=== PATIENT | male | born 1950 | race Caucasian/White ===

== ENCOUNTER → 2018-11-18 11:48 | Outpatient (CLI) | payer OTHER, SELFPAY ==
[2018-11-18 12:30] LABS: Absolute Lymphocyte Count 1.83 X10^3/uL (0.83-4.51); Absolute Neutrophil Count 6.1 X10^3/uL (2.0-7.7); Basophil# 0.04 X10^3/uL; Basophil% 0.5 % (0-1); Eosinophil# 0.17 X10^3/uL; Eosinophils% 1.9 % (0-5); Hematocrit 43.7 % (40-54); Hemoglobin 13.6 g/dL (13.0-16.5); Lymphocyte # 1.83 X10^3/ul (4.0); Lymphocyte % 20.8 % (19-41); Mean Corp Hgb Conc 31.1 g/dL (32-36); Mean Corpuscular Hgb 29.8 pg (27.0-32.0); Mean Corpuscular Volume 95.8 fL (80-94); Mean Platelet Vol. 10.2 fl (6.2-12.0); Monocyte# 0.69 X10^3/uL; Monocyte% 7.8 % (0-10); NRBC Flagged by Analyzer 0 % (0-5); Neutrophil # 6.05 X10^3/uL (2.7-7.7); Neutrophil % 68.7 % (47-70); Platelet Count 251 K/mm3 (150-450); RBC Distribution Width CV 12.4 % (11.6-14.6); RBC Distribution Width SD 43.8 fl (35.1-43.9); Red Blood Count 4.56 M/mm3 (4.6-6.2); White Blood Count 8.8 K/mm3 (4.4-11.0)
== END ==
PROVIDERS: Referring Provider Specialist; Visit Provider Specialist
DX: M19.211 Secondary osteoarthritis, right shoulder (principal)
CPT/HCPCS: 36415; 85025

== ENCOUNTER 2018-12-11 07:05 | Inpatient (IN) | payer MEDICARE, SELFPAY ==
[2018-11-27 15:13] VITALS: BP 134/77; PULSE 79; RESP 16; TEMP 37.4; O2SAT 93; BMI 36.0
--- NOTE | 2018-11-27 15:46 | SDCEKG_ITS ---
Test Reason : Blood Pressure : / mmHG Vent. Rate : 076 BPM Atrial Rate : 076 BPM P-R Int : 154 ms QRS Dur : 100 ms QT Int : 396 ms P-R-T Axes : 062 072 080 degrees QTc Int : 445 ms Normal sinus rhythm Normal ECG Confirmed by ROEL BELL ([id number]), editor index KIMBERLEY CORONADO ([id number]) on 12/03/2018 1:03:09 PM Referred By: Yovani Alberts Confirmed By:ROEL BELL
--- NOTE | 2018-11-27 16:15 | RAD_ITS ---
STUDY: X-RAY CHEST REASON FOR EXAM: Male, 68 years old. Preop shoulder surgery TECHNIQUE: Frontal and lateral views of the chest. COMPARISON: None. FINDINGS: The lungs are hyperexpanded. There are coarsened interstitial markings suggestive of mild chronic fibrosis. There is scarring in the lung bases. No gross focal infiltrates. No gross effusions. Normal size heart. Normal mediastinum and laurence. Normal visualized pulmonary arteries. Normal visualized aortic arch and descending thoracic aorta. There are diffuse degenerative changes of the visualized thoracic spine. Normal visualized ribs, clavicles, and shoulders. There is no demonstrated abnormality of the visualized soft tissue structures of the upper abdomen. RAD/Chest PA and Lateral IMPRESSION: There are findings consistent with COPD. There is no evidence of acute chest disease. Electronically Signed: Jose J Kraft MD at 16:37 EDT , Service support ,
[2018-11-27 18:03] LABS: Anion Gap 8 (5-15); BUN 17 mg/dL (7-18); BUN/Creat Ratio 25.1 RATIO (10-20); Calcium,Total 9.1 mg/dL (8.5-10.1); Chloride 96 mmol/L (98-107); Creatinine, Serum 0.68 mg/dL (0.70-1.30); EST Glomerular Filtration Rate 124 mL/min (>60); Est Glom Filt Rate - Afr Amer 150 mL/min (>60); Glucose 92 mg/dL (74-106); Potassium 4.1 mmol/L (3.5-5.1); Sodium Level 138 mmol/L (136-145)
[2018-12-11] VITALS (14 sets, daily range): BP systolic 114–134; BP diastolic 60–76; PULSE 60–87; RESP 17–19; TEMP 36.3–37; O2SAT 88–98; BMI 36.0
--- NOTE | 2018-12-11 07:19 | RAD_ITS ---
STUDY: X-RAY - RIGHT SHOULDER REASON FOR EXAM: Male, 68 years old. Total right shoulder replacement. TECHNIQUE: 2 view(s) of the shoulder. COMPARISON: None. FINDINGS: The patient is status post right reverse shoulder replacement. There is good alignment. Postoperative soft tissue changes. RAD/Shoulder min 2 Views IMPRESSION: Status post right reverse shoulder replacement. There is good alignment. Electronically Signed: Alexandr Deluna, at 14:00 EDT , Service support ,
[2018-12-11 07:36] LABS: Bedside Glucose 158 mg/dL (70-110)
[2018-12-11] MEDS: Acetaminophen 500 MG Tablet 1000 MG PO ×3 (07:58→22:33)
[2018-12-11] MEDS: Scopolamine 1mg/72hr Patch 1 PATCH TRANSDERM. (07:59)
[2018-12-11] MEDS: Gabapentin 600 MG Tablet PO (08:00)
[2018-12-11] MEDS: Celecoxib 200 MG Capsule 400 MG PO (08:00)
[2018-12-11] MEDS: Magnesium Sulfate 4gm/100mL 4 GM/100 ML IV.SOLN. IV (08:04)
[2018-12-11] MEDS: Lactated Ringers 1,000 ML 999 ML IV (08:10)
[2018-12-11] MEDS: Lactated Ringers 1,000 ML 125 ML IV ×3 (10:03→23:41)
[2018-12-11] MEDS: Cefazolin 2 GM in 0.9% Normal Saline 100 ML IV (10:20)
--- NOTE | 2018-12-11 11:51 | PCM.OPRPT ---
Report of Operation Date of Procedure: 12/11/18 Pre-Operative Diagnosis: Right shoulder cuff tear arthropathy Post-Operative Diagnosis: Right shoulder cuff tear arthropathy Surgery/Procedure Performed:: Right reverse total shoulder replacement Description of Surgical Findings:: Stable shoulder. professional engineer: Shahrzad Garcia Type of Anesthesia:: General Anesthesiologist: Robinson Mendez Special Medications: 2 g Ancef, 1 g TXA at incision, 1 g TXA closure, 10 mg Decadron, IV vancomycin Specimen's removed: Bony cuts Estimated Blood Loss (mL): 300 Fluids Replaced: 1300 mL crystalloid Description of Procedure: Components used 1. [place] reunion glenoid baseplate 2. [place] reunion 36 mm, 6 mm lateralized, offset 2 mm Glenosphere 3. [place] 36mm, 4mm humeral liner 4. [place] reverse TSA humeral adapter tray 4mm 5. Jarret humeral stem primary press-fit short 14 mm size Brief history/Operative indications: 68 yo M with history of r shoulder pain and cuff tear arthropathy. Patient failed conservative measures as mentioned in the H&P. After discussion of risk and benefits of reverse total shoulder replacement including but not limited to blood loss, DVTs, PEs, nerve vessel damage, infection, general risk of anesthesia including loss of life, instability and stiffness patient demonstrating understanding wish to proceed was able to sign informed consent. Medical clearance was obtained. Procedure: On the date of the procedure, patient's R upper extremity was marked in the preoperative area. Patient was taken back to the operating room where they were placed on the table in the supine position. Anesthesia assumed control of the C-spine and airway, then administered anesthetic. All bony prominences were identified well-padded, the head was secured and the patient was placed in the beachchair position at about 35? inclination. Anesthesia remained in control of the C-spine airway throughout the remainder of the procedure. Patient was then appropriately fastened to the table and the R upper extremity was prepped in a sterile fashion. The surgeons then scrubbed. Upon reentering the room, the R upper extremity was draped in a sterile fashion and the incision was marked out. Timeout was called, everyone agreed upon the side, the site, the procedure to be performed, patient identity and antibiotics given. Incision was taken down through skin and subcutaneous tissue, fat down to fascia. The stripe of the deltopectoral interval and cephalic vein were identified and blunt dissection was used to retract the deltoid. The cephalic vein was retracted laterally. Clavipectoral fascia was then incised and a cobra retractor was placed in the wound. The proximal one third of the pectoralis major insertion was released. Pectoralis tendon insertion was used to tenodesed the biceps tendon which was identified in the bicipital groove. Tenodesis was done with #1 Vicryl. Proximally we followed the biceps tendon after transecting it into the rotator interval. The rotator interval was split and the arm was externally rotated. The split was 1 cm medial to the bicipital groove. Subscapularis tendon was released. We released down the anterior portion of the humeral head and a beatty elevator was used to release the inferior portion of the humeral head. The arm was externally rotated and the shoulder was dislocated. The humerus was cut in anatomic version. This was done at 20? retroversion. Once his humeral head cut was made humerus was retracted out of the way and the glenoid was exposed. After exposing the glenoid, the labrum and the remaining proximal biceps were debrided. At this time we are able to view the entire outer edge of the glenoid. A central pin was placed we sequentially reamed over this central pin to 36mm. Once this was completed the central pedicle was drilled. The glenoid baseplate was impacted into place. Wound was closely irrigated out with normal saline we then drilled sequentially for 2 screws. Screws were placed superiorly and inferiorly and tightened down the screws. Once the screws were appropriately tightened into place the glenoid baseplate was compressed against the exposed subchondral bone. Locking caps were placed and a 36 mm glenosphere was impacted into place engaging the Gilmore taper. The central screw was then tightened into place. Attention was then turned towards the humerus. The humerus was again externally rotated exposing the proximal portion of the humerus. Central canal finder was then used to open up the canal. We reamed to a 14mm reamer. We then broached to a 14mm stem. We trialed the 4mm liner, with the 4mm humeral baseplate. We obtained an adequate reduction at this time with a nice stable shoulder. Good internal rotation to the gluteus, forward elevation to 140?, external rotation to 20?. Final components were then assembled on the back table, trials were removed and the wound was copiously irrigated with normal saline after dislocating the shoulder. Once the final components were assembled they were impacted into place. Shoulder was then reduced and found to be stable with good range of motion. Subscapularis tendon was repaired using #2 FiberWire. The wound was then copiously irrigated out with a 1 L normal saline lavage. The deltopectoral fascia was then closed using #1 Vicryl skin was closed using 2-0 Vicryl interrupted sutures and final skin closure was done with 3-0 Monocryl. Steri-Strips are placed for final skin closure. Sterile dressing was placed patient was then placed in a sling and awakened by anesthesia. Patient was then transferred to the PACU for recovery. Postoperative plan: Patient will be admitted to the hospital overnight. They will get physical therapy starting in 2 weeks with normal postoperative regimen. Patient will be placed on aspirin daily for DVT prophylaxis. The first postoperative appointment will be in 2 weeks for wound check and initiation of phase 1 physical therapy. Grafts/Implants Used: [place] reunion reverse total shoulder system - Complications No intraoperative complications - Admit VTE Documentation VTE Present on Admission: No VTE Mechan Device Prophylaxis: SCD's, Knee High JOEY Hose VTE Pharm Prophylaxis ordered?: Yes
[2018-12-11] MEDS: Metoprolol Tartrate 25 MG Tablet PO ×2 (16:36→22:34)
[2018-12-11] MEDS: Senna/Docusate Sodium 1 Tablet 2 TABLET PO ×2 (16:36→22:30)
[2018-12-11] MEDS: Aspirin 325 MG Tablet PO (16:37)
[2018-12-11] MEDS: Lisinopril 5 MG Tablet PO (16:37)
[2018-12-11] MEDS: Famotidine 20 MG Tablet PO (16:38)
[2018-12-11] MEDS: Ensure Surgery 237 ML LIQUID PO (16:39)
[2018-12-11] MEDS: Cefazolin 1 GM/50 ML BAG IV (17:43)
[2018-12-11] MEDS: Atorvastatin Calcium 20 MG Tablet PO (22:30)
[2018-12-12] VITALS (15 sets, daily range): BP systolic 101–137; BP diastolic 48–101; PULSE 61–96; RESP 12–30; TEMP 36.7–37.5; O2SAT 80–95
[2018-12-12] MEDS: Morphine 2 MG/ML Syringe IV (00:55)
[2018-12-12] MEDS: 0.9% Saline Lock 10 ML Syringe IV ×3 (01:34→23:51)
[2018-12-12] MEDS: Ketorolac 15 MG/ML Vial IV (01:34)
[2018-12-12] MEDS: Cefazolin 1 GM/50 ML BAG IV (01:41)
[2018-12-12] MEDS: oxyCODONE 5 MG Tablet 2.5 MG PO (04:43)
[2018-12-12] MEDS: Acetaminophen 500 MG Tablet 1000 MG PO ×3 (05:36→21:39)
[2018-12-12 05:52] LABS: Hematocrit 35.6 % (40-54); Hemoglobin 11.1 g/dL (13.0-16.5); Mean Corp Hgb Conc 31.2 g/dL (32-36); Mean Corpuscular Hgb 30.3 pg (27.0-32.0); Mean Corpuscular Volume 97.3 fL (80-94); Mean Platelet Vol. 9.9 fl (6.2-12.0); Platelet Count 199 K/mm3 (150-450); RBC Distribution Width CV 12.9 % (11.6-14.6); RBC Distribution Width SD 46.2 fl (35.1-43.9); Red Blood Count 3.66 M/mm3 (4.6-6.2)
[2018-12-12 06:11] LABS: Anion Gap 1 (5-15); BUN 14 mg/dL (7-18); BUN/Creat Ratio 24.2 RATIO (10-20); Calcium,Total 8.1 mg/dL (8.5-10.1); Chloride 101 mmol/L (98-107); Creatinine, Serum 0.58 mg/dL (0.70-1.30); EST Glomerular Filtration Rate 148 mL/min (>60); Est Glom Filt Rate - Afr Amer 179 mL/min (>60); Glucose 117 mg/dL (74-106); Potassium 4.7 mmol/L (3.5-5.1); Sodium Level 137 mmol/L (136-145)
--- NOTE | 2018-12-12 08:14 | PCM.PN.ORT ---
Subjective: The patient was sitting in bedside chair upon examination. Patient denies any chest pain, shortness of breath, dizziness, lightheadedness, nausea or vomiting, or calf pain. No adverse overnight events. Patient did have increased pain overnight and was given morphine, Toradol, and oxycodone. Patient has been very drowsy/groggy. He is currently eating breakfast. During conversation patient dozes off. He states the pain was increased in the right shoulder but medications are helpful. He also has history of sleep apnea in which he uses a CPAP machine at home. Objective: Vital signs stable, afebrile On exam patient is drowsy/groggy but is able to answer questions and dozes off. Dressing is clean, dry, intact Ultra-sling fitting appropriately Sensation intact to axillary, radial, median, and ulnar distribution Motor intact to AIN, PIN, and ulnar nerve - Physical Exam General: Alert, Oriented x3, Cooperative Vital Signs Temp Pulse Resp BP Pulse Ox 98.4 F 61 18 101/48 L 95 12/12/18 04:25 12/12/18 04:25 12/12/18 04:25 12/12/18 04:25 12/12/18 04:25 Oxygen Flow Rate (L/min) 4 Oxygen Delivery Method Nasal Cannula Weight: 98.2 kg Body Mass Index (BMI) 36.0 Intake and Output for Last 24 Hours 12/10/18 12/11/18 12/12/18 23:59 23:59 23:59 Intake Total 4037.08 / 4157.08 1011.67 / 1011.67 Output Total 300 / 950 750 / 750 Balance 3737.08 / 3207.08 261.67 / 261.67 Laboratory Tests Past 24 Hrs 12/12/18 12/12/18 05:36 05:36 WBC 12.0 H RBC 3.66 L Hgb 11.1 L Hct 35.6 L MCV 97.3 H MCH 30.3 MCHC 31.2 L RDW Std Deviation 46.2 H RDW Coeff of Grabiel 12.9 Plt Count 199 MPV 9.9 Sodium 137 Potassium 4.7 Chloride 101 Carbon Dioxide 35.0 H Anion Gap 1 L BUN 14 Creatinine 0.58 L Estim Creat Clear Calc 61.50 Est GFR (MDRD) Af Amer 179 Est GFR (MDRD) Non-Af 148 BUN/Creatinine Ratio 24.2 H Glucose 117 H Calcium 8.1 L Medical Necessity - Tobacco Use Smoking Status: Current some day smoker Tobacco Use: Cigarettes, Pipe Assessment/Plan 1. S/P right reverse total shoulder arthroplasty POD #1 2. Continue Pain Medications: Patient is to continue with Tylenol primarily for pain control, will use tramadol for breakthrough pain. Morphine and oxycodone was discontinued. 3. DVT Prophylaxis: Aspirin 325 mg once daily for 2 weeks postoperatively 4. PT/OT: Continue with UltraSling at all times, okay to come out 3-4 times daily working on elbow, wrist, hand range of motion only. Okay for pendulum exercises. Outpatient formal physical therapy will begin after 2-week postoperative follow-up. 5. H & H: 11.1/35.6, asymptomatic 6. Reactive leukocytosis: Currently 12.0, afebrile. Patient did receive Decadron intraoperatively 7. Postoperative pain: Pain medications were adjusted in which I do feel were playing a part with patient being drowsy/groggy. He will be continued with Tylenol primarily for pain control and only use tramadol for breakthrough pain. Morphine and oxycodone were discontinued. Continue monitoring oxygen saturation and nasal O2. 8. Encouraged Incentive Spirometry 9. Disposition: Due to patient's pain control patient will require additional stay. Plan will be for possible discharge home tomorrow.
--- NOTE | 2018-12-12 08:22 | CPS ---
PATIENT IS UNABLE TO DO INCENTIVE
[2018-12-12] MEDS: Senna/Docusate Sodium 1 Tablet 2 TABLET PO ×2 (09:32→21:39)
[2018-12-12] MEDS: Ensure Surgery 237 ML LIQUID PO ×2 (09:32→17:25)
[2018-12-12] MEDS: Meloxicam 7.5 MG Tablet PO (09:33)
[2018-12-12] MEDS: Metoprolol Tartrate 25 MG Tablet PO ×2 (09:33→21:39)
[2018-12-12] MEDS: Lisinopril 5 MG Tablet PO (09:33)
[2018-12-12] MEDS: Aspirin 325 MG Tablet PO (09:37)
[2018-12-12] MEDS: Famotidine 20 MG Tablet PO (09:37)
--- NOTE | 2018-12-12 14:00 | CASEMGMT ---
BA RAND Face to Face with patient for initial transition planning/care coordination assessment. BA RAND introduced self and role at [facility]. Patient lying in bed, alert and oriented, daughter at bedside. Patient willing to participate in assessment and is able to answer all questions appropriately. Care providers, pharmacy, and demographics verified. Patient wishes to discharge home but is agreeable to SNF if needed at discharge. PT/OT updated this CM and SW that patient will need SNF at discharge. List of SNF provided to patient and first choice is [facility]. Patient states he has no further needs or concerns at this time. RODDY Lucas updated with patient's choice for SNF. PCP: Am[facility] Specialists: mary Alberts [facility]: [facility] Insurance: [employer] Prescription Benefit: yes Living Will/HPOA: yes, daughters LNOK: daughters Living Arrangements: Patient lives in apartment on property with daughter. Patient states he is independent at home. Daughter states that he is requiring more help here at [facility]. Transportation: Daughters DME/HHC: Patient states he has cane and cpap at home. Disposition Plan: SNF pending PreCert. Batool PRUITT, RN, CM
--- NOTE | 2018-12-12 14:30 | CASEMGMT ---
Addendum entered by Batool Lucas 12/12/18 15:57: SW received message from Gabi at [facility] stating she is able to accept pt and has submitted for pre-cert. Plan: [facility] pending pre-cert Addendum entered by Batool Lucas 12/12/18 15:41: SW placed transfer to extended care form on pt's chart. Original Note: Social Work Note PT/OT updated this worker that they are recommending pt go to SNF at discharge. BA Gomez spoke with pt and pt's daughter and provided list of SNF that accept pt's insurance. Pt's daughter states first choice is [facility]. SW reviewed [employer] list and [facility] is not in network with pt's insurance. BA Gomez back to speak with pt and pt's daughter and next choice is [facility]. RODDY placed a call to Gabi at [facility] and left message informing her of referral. RODDY informed Gabi that if she is able to accept to submit for pre-cert. Plan: [facility] pending acceptance and pre-cert Batool Lucas VEGETABLE SCULLION, PAYLOADER MACHINE OPERATOR
--- NOTE | 2018-12-12 16:26 | PCM.PROGNOTE ---
<Anirudh Branch - Last Filed: 12/12/18 16:26> Subjective: Patient is hypoxic and severely wheezy with conversational dyspnea post op today. Despite this he denies outright that he is short of breath. He has a hx of asthma, SHANNAN, and CAD (prior [place]). 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 He Did not bring his home CPAP machine as he did not feel he would need it. He does not see a talent analyst. He has no chest pain. - Physical Exam General: Alert, Oriented x3, Cooperative HEENT: Atraumatic, PERRLA, EOMI, Normocephalic Neck: Supple, No JVD, Negative Carotid Bruits Lungs: Normal air movement, Short of Breath, Wheezes, - - conversational dyspnea Cardiovascular: Regular rate, No murmurs Abdomen: Bowel Sounds Present, Soft, Non Tender Extremities: No edema, Capillary Refill Less than 3 Seconds Skin: No rashes, No breakdown Musculoskeletal: No Tenderness to Palpation of Joints or Extremities Neurological: Cranial nerves II-XII grossly intact Psych/Mental Status: Normal Affect, Appropriate, Alert and oriented to time, place, person, mood and affect Vital Signs Temp Pulse Resp BP Pulse Ox 99.5 F H 85 20 H 128/72 H 80 12/12/18 15:30 12/12/18 15:30 12/12/18 15:30 12/12/18 15:30 12/12/18 15:53 Oxygen Flow Rate (L/min) 3 Oxygen Delivery Method Room Air Weight: 216 lb 7.903 oz Body Mass Index (BMI) 36.0 Intake and Output for Last 24 Hours 12/10/18 12/11/18 12/12/18 23:59 23:59 23:59 Intake Total 4037.08 / 4157.08 1770.00 / 1770.00 Output Total 300 / 950 1050 / 1050 Balance 3737.08 / 3207.08 720.00 / 720.00 Laboratory Tests Past 24 Hrs 12/12/18 12/12/18 05:36 05:36 WBC 12.0 H RBC 3.66 L Hgb 11.1 L Hct 35.6 L MCV 97.3 H MCH 30.3 MCHC 31.2 L RDW Std Deviation 46.2 H RDW Coeff of Grabiel 12.9 Plt Count 199 MPV 9.9 Sodium 137 Potassium 4.7 Chloride 101 Carbon Dioxide 35.0 H Anion Gap 1 L BUN 14 Creatinine 0.58 L Estim Creat Clear Calc 61.50 Est GFR (MDRD) Af Amer 179 Est GFR (MDRD) Non-Af 148 BUN/Creatinine Ratio 24.2 H Glucose 117 H Calcium 8.1 L Medical Necessity - Tobacco Use Smoking Status: Current some day smoker Tobacco Use: Cigarettes, Pipe Assessment/Plan 1. Right total shoulder post op day #1 - care as per ortho 2. Hypoxia, hypercapnia 2/2 Acute COPD (presumed) exacerbation, complicated by SHANNAN - solumedrol, duonebs, incentive spirometer. Get CXR. Consult pulmonology. D/w Dr. Garcia - start Bipap now, obtain home CPAP if possible. ABG pending. Smoker, also occupational sawdust exposure. Needs pulmonology follow up and PFTs. 3. Hx SHANNAN - compliant with home CPAP 4. Nicotine abuse - pipe tobacco and chewing tobacco. He states he will quit. Patch if desired. 5. CAD - prior [place]. KAITLIN, metoprolol, aspirin, statin. Thank you for the opportunity to participate in the care of this patient. This patient was seen by Anirudh Branch PA-C under the supervision of Doctor Peterson. <Effie Peterson - Last Filed: 12/12/18 17:06> - Physical Exam Vital Signs Temp Pulse Resp BP Pulse Ox 99.5 F H 85 20 H 128/72 H 80 12/12/18 15:30 12/12/18 15:30 12/12/18 15:30 12/12/18 15:30 12/12/18 15:53 Oxygen Flow Rate (L/min) 3 Oxygen Delivery Method Room Air Weight: 98.2 kg Body Mass Index (BMI) 36.0 Intake and Output for Last 24 Hours 12/10/18 12/11/18 12/12/18 23:59 23:59 23:59 Intake Total 4037.08 / 4157.08 1770.00 / 1770.00 Output Total 300 / 950 1050 / 1050 Balance 3737.08 / 3207.08 720.00 / 720.00 Laboratory Tests Past 24 Hrs 12/12/18 12/12/18 05:36 05:36 WBC 12.0 H RBC 3.66 L Hgb 11.1 L Hct 35.6 L MCV 97.3 H MCH 30.3 MCHC 31.2 L RDW Std Deviation 46.2 H RDW Coeff of Grabiel 12.9 Plt Count 199 MPV 9.9 Sodium 137 Potassium 4.7 Chloride 101 Carbon Dioxide 35.0 H Anion Gap 1 L BUN 14 Creatinine 0.58 L Estim Creat Clear Calc 61.50 Est GFR (MDRD) Af Amer 179 Est GFR (MDRD) Non-Af 148 BUN/Creatinine Ratio 24.2 H Glucose 117 H Calcium 8.1 L Assessment/Plan This patient was seen in conjunction with JOSEMANUEL Robertson. I have independently interviewed and examined the patient and reviewed pertinent historical, laboratory, and other data. Please refer to JOSEMANUEL Robertson note for his patient's presentation, findings, and recommendations. I have reviewed and his note and concur with his documentation 68-year-old male with past medical history of CAD status post [place], chronic nicotine dependence with the use of pipe and chewing tobacco, ? History of asthma/COPD, SHANNAN on CPAP, morbid obesity who comes in for elective right shoulder reverse arthroplasty. We have been consulted for postop medical management for hypoxia. Does not use oxygen at baseline at home. He uses his CPAP at night without oxygen. He denies any shortness of breath on exertion at home. Interestingly patient also denies feeling short of breath despite being observed having conversational dyspnea after walking a few steps around his bed. Denies any dizziness or palpitations or chest pain. He admits to occasional cough with whitish sputum production. 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 The time of exam, his pain in the right shoulder was controlled. Physical Exam: Gen: Having conversational dyspnea, on 3 L of oxygen, not pale, not jaundiced, obese CVS:HS I +II, regular, no murmurs RESP: Diminished lobe of the lung bases with wheezes plus plus GI: obese, BS present and normal, soft, nontender, no palpable organs EXT:No edema ASSESSMENT: 1. Acute COPD exacerbation 2. Acute hypoxic respiratory insufficiency secondary to #1 3. Postop day #1 status post right reverse total shoulder arthroplasty 4. SHANNAN on CPAP 5. Nicotine dependence 6. CAD status post [place] Plan: Scheduled breathing treatments IV steroids Hold meloxicam Continue on metoprolol for now- h/o CAD Advised to quit Pulmonology consult to establish care and for outpatient follow-up for PFTs Patient might require oxygen at discharge Code Visit Inpatient E&M: 45957 Subs Hosp L2
--- NOTE | 2018-12-12 16:33 | RAD_ITS ---
STUDY: X-RAY CHEST REASON FOR EXAM: Male, 68 years old. Chest pain TECHNIQUE: Frontal view of the chest COMPARISON: X-ray chest November 27, 2018 FINDINGS: Mild bibasilar infiltrates are present. Small bilateral effusions are present. There is no pneumothorax. The heart is normal in size. The visualized osseous structures are within normal limits. RAD/Chest PA and Lateral IMPRESSION: Mild bibasilar infiltrates with small bilateral effusions. Electronically Signed: Valeriano Archer, at 17:38 EDT Tel , Service support ,
--- NOTE | 2018-12-12 16:45 | NURSING ---
Call to patient's daughter to see if she was able to bring in home CPAP machine. There was no answer. Message left with call back number.
[2018-12-12 17:15] LABS: Allen Test POS; Base Excess 10 mmol/L (-2 to +2); Bicarbonate 35.2 mmol/L (22-26); Blood Gas Specimen Type ART; O2 Delivery Device Nasal Can; PO2 65 mmHG (75-100); SITE L Radial; SO2 91 % (95-99); Time Given 1710; Total Carbon Dioxide 37 mmol/L; pCO2 60.4 mmHg (35-45); pH 7.37 (7.35-7.45)
[2018-12-12] MEDS: Atorvastatin Calcium 20 MG Tablet PO (21:39)
[2018-12-12 23:56] LABS: Allen Test POS; Base Excess 9 mmol/L (-2 to +2); Bicarbonate 33.9 mmol/L (22-26); Blood Gas Specimen Type ART; EPAP 4; FI02 30; IPAP 8; PO2 73 mmHG (75-100); RR 12; SITE L Radial; SO2 94 % (95-99); Time Given 2340; Total Carbon Dioxide 36 mmol/L; pCO2 57.8 mmHg (35-45); pH 7.38 (7.35-7.45)
--- NOTE | 2018-12-12 23:59 | NURSING ---
Pt unable to tolerate bipap. Pt states that it is too much pressure blowing on him and it's keeping him from being able to fall asleep. Bipap placed on standby mode and 3L O2 via cannula applied.
--- NOTE | 2018-12-12 23:59 | CPS ---
ABG performed on pt. roughly one hour after being place on BiPaP; 09/29 - 12 - 30%
[2018-12-13] VITALS (18 sets, daily range): BP systolic 108–154; BP diastolic 59–79; PULSE 78–110; RESP 18–22; TEMP 36.5–37.1; O2SAT 88–95
--- NOTE | 2018-12-13 05:36 | PCM.PN.ORT ---
Subjective: Patient has had issues with oxygenation and started on methylprednisolone yesterday. Awaiting consultation from Dr. Jose Cameron. Medicine was consulted due to his additional medical issues. Appreciate medical input. Patient reports no pain in his right shoulder now. Tolerating the sling well. He is requiring significant assistance with therapy and transfers. Patient denies any chest pain or shortness of breath. Objective: Right shoulder postop films show stable right reverse total shoulder replacement - Physical Exam General: Alert, Oriented x3, Cooperative Lungs: - - Patient's breathing is labored at bedside Extremities: - - Right upper extremity: Dressing is clean dry and intact, no surrounding erythema. Sensations intact light touch axillary/R/M/U distally. Positive thumbs up okay sign and cross his fingers. Vital Signs Temp Pulse Resp BP Pulse Ox 98.7 F 78 18 154/69 H 92 12/13/18 02:01 12/13/18 03:59 12/13/18 02:01 12/13/18 02:01 12/13/18 02:01 Oxygen Flow Rate (L/min) 3 Oxygen Delivery Method Nasal Cannula Weight: 216 lb 7.903 oz Body Mass Index (BMI) 36.0 Intake and Output for Last 24 Hours 12/11/18 12/12/18 12/13/18 23:59 23:59 23:59 Intake Total 4037.08 / 4157.08 1970.00 / 2770.00 800 / 800 Output Total 300 / 950 1400 / 1400 Balance 3737.08 / 3207.08 570.00 / 1370.00 800 / 800 Laboratory Tests Past 24 Hrs 12/12/18 12/12/18 12/12/18 05:36 05:36 17:11 WBC 12.0 H RBC 3.66 L Hgb 11.1 L Hct 35.6 L MCV 97.3 H MCH 30.3 MCHC 31.2 L RDW Std Deviation 46.2 H RDW Coeff of Grabiel 12.9 Plt Count 199 MPV 9.9 Specimen Type ART Sample Site L Radial pH 7.37 Bicarbonate Actual 35.2 H POC Total CO2 37 Base Excess 10 H O2 Saturation 91 L O2 % ABG pCO2 60.4 H ABG pO2 65 L Xavi Test POS Respiration Rate O2 Delivery Device Nasal Can Liter Flow 3.0 EPAP IPAP Blood Gas Notified Whom HOSP Blood Gas Notified Time 1710 Sodium 137 Potassium 4.7 Chloride 101 Carbon Dioxide 35.0 H Anion Gap 1 L BUN 14 Creatinine 0.58 L Estim Creat Clear Calc 61.50 Est GFR (MDRD) Af Amer 179 Est GFR (MDRD) Non-Af 148 BUN/Creatinine Ratio 24.2 H Glucose 117 H Calcium 8.1 L 12/12/18 23:48 WBC RBC Hgb Hct MCV MCH MCHC RDW Std Deviation RDW Coeff of Grabiel Plt Count MPV Specimen Type ART Sample Site L Radial pH 7.38 Bicarbonate Actual 33.9 H POC Total CO2 36 Base Excess 9 H O2 Saturation 94 L O2 % 30 ABG pCO2 57.8 H ABG pO2 73 L Xavi Test POS Respiration Rate 12 O2 Delivery Device Bi / C PAP Liter Flow EPAP 4 IPAP 8 Blood Gas Notified Whom HOSP Blood Gas Notified Time 2340 Sodium Potassium Chloride Carbon Dioxide Anion Gap BUN Creatinine Estim Creat Clear Calc Est GFR (MDRD) Af Amer Est GFR (MDRD) Non-Af BUN/Creatinine Ratio Glucose Calcium Medical Necessity - Tobacco Use Smoking Status: Current some day smoker Tobacco Use: Cigarettes, Pipe Assessment/Plan Postop day 2 right reverse total shoulder replacement. 1. PT: For ambulation, transfers and ADLs. Holding shoulder physical therapy. Should do elbow wrist and finger range of motion exercises 2. DVT prophylaxis: Aspirin daily 3. Pain control: Mostly Tylenol at this point, oxycodone is been ordered. 4. Respiratory difficulties: Medicine was consulted yesterday after patient showed increased usage of oxygen postoperatively. He was unable to wean from oxygen yesterday. ABGs were obtained. Dr. Cameron has been consulted. He does have chronic SHANNAN and uses a CPAP at home. Attempted BiPAP last night. Patient reports poor tolerance with the BiPAP and does not have it on when examined earlier this morning. Will await medical work-up. 5. Disposition: At this point patient is requiring significant assistance with transfers and mobility. Reportedly a two assist. Patient would like to return home however the concern is that his family is not able to meet his needs. He also has potential unmet oxygenation needs which could be related to his recent operative procedure or could be chronically unmet. At this time we are attempting to have approval for placement and will await the findings of his pulmonary consultation. Disposition is likely later today or tomorrow if all issues are resolved. Will not discharge until medically appropriate. [facility] Office:
[2018-12-13] MEDS: 0.9% Saline Lock 10 ML Syringe IV ×3 (05:39→21:14)
[2018-12-13] MEDS: Acetaminophen 500 MG Tablet 1000 MG PO ×3 (05:40→21:13)
--- NOTE | 2018-12-13 05:49 | DCINST_ITS ---
Discharge Diet: No Restrictions Discharge Activity: May Not Drive May shower in (days): 1 - back to water May resume sexual activity in: 6-8 weeks Ice area for (Minutes): 20 - Ice area for 20 minutes each hour while awake Weight Bearing Status: No weight bearing - right arm Keep extremity elevated above heart level: Operative Extremity Call your doctor if your incision/area has: Continuous Slow Oozing, Sudden Increased Bleeding, Increased Pain/ Swelling, Increased Redness, Foul Smelling Discharge Call your doctor if you observe: Fever of 101 or Higher, Coldness, Increased Pain, Numbness or Tingling, Change in Color Remove Dressing in (days):: 12-16-2018 Additional Dressing/Incision Instructions:: If incision is clean dry and intact may leave the wound open to air and continue showering. If there is continued drainage continue daily dry dressing changes and keep incision clean dry and intact until there is no drainage. Allergies/Adverse Reactions: Allergies No Known Allergies Allergy (Verified 12/11/18 07:27) Medications to take at Discharge Cholecalciferol (Vitamin D3) [Vitamin D3] 1,000 unit PO DAILY 11/27/18 Lisinopril [Zestril] 5 mg PO DAILY 11/27/18 Metoprolol Tartrate 25 mg PO BID 11/27/18 [place]-3 Fatty Acids/Fish Oil [[place] 3 1,000 mg Softgel] 1 ea PO BID 11/27/18 Simvastatin [Zocor] 40 mg PO QHS 11/27/18 Acetaminophen [Tylenol] 1,000 mg PO Q8 #90 tab 12/13/18 Aspirin 325 mg PO DAILY@0800 #30 tab 12/13/18 Ensure Surgery 237 ml PO TIDCM #30 liquid 12/13/18 Famotidine [Pepcid] 20 mg PO DAILY #30 tab 12/13/18 Senna/Docusate Sodium [Senokot-S] 2 tab PO BID tab 12/13/18 traMADol [Ultram] 50 mg PO Q6H PRN PRN #30 tab 12/13/18 Albuterol Inhaler [Ventolin Hfa] 1 - 2 puff INHALATION Q4H PRN PRN #1 inhaler 12/14/18 Prednisone 10 mg PO DAILY #30 tab.ds.pk 12/14/18 The following prescriptions were given: Aspirin 325 mg PO DAILY@0800 #30 tab Prescription Printed Ensure Surgery 237 ml PO TIDCM #30 liquid Prescription Printed Famotidine [Pepcid] 20 mg PO DAILY #30 tab Prescription Printed Prednisone 10 mg PO DAILY #30 tab.ds.pk Transmission Status: Received by [facility] Acetaminophen [Tylenol] 1,000 mg PO Q8 #90 tab Prescription Printed traMADol [Ultram] 50 mg PO Q6H PRN PRN #30 tab PRN Reason: Pain Score 4-10/10 Prescription Printed Albuterol Inhaler [Ventolin Hfa] 1 - 2 puff INHALATION Q4H PRN PRN #1 inhaler PRN Reason: Shortness Of Breath Transmission Status: Received by [facility] Primary Care Physician: Yue Fitzgerald MD [Primary Care Provider] - Test Results: Test results from this visit will be discussed in further detail at your follow- up appointment, if applicable. Please Follow Up With: Liam Peñaloza PA-C When: 12-25-2018, 11:00 Proposed Discharge Date: 12/14/18
[2018-12-13] MEDS: Ipratropium/Albuterol Sulfate 3 ML AMPUL.NEB INHALATION ×4 (07:00→18:58)
--- NOTE | 2018-12-13 09:40 | CON.PCM_ITS ---
Problem List (1) Hypoxia Status: Acute (2) SHANNAN (obstructive sleep apnea) Status: Chronic Comment: Reportedly on CPAP (3) Hypertension Status: Chronic Qualifiers: Hypertension type: essential hypertension Qualified Code(s): I10 - Essential (primary) hypertension (4) Hyperlipidemia Status: Chronic Qualifiers: Hyperlipidemia type: mixed hyperlipidemia Qualified Code(s): E78.2 - Mixed hyperlipidemia (5) Coronary artery disease Status: Chronic Qualifiers: Coronary Disease-Associated Artery/Lesion type: [place] artery [place] vs. transplanted heart: [place] heart Associated angina: without angina Qualified Code(s): I25.10 - Atherosclerotic heart disease of [place] coronary artery without angina pectoris Reason for Consult Date of Consultation: 12/13/18 Reason for Consultation: Hypoxia History of Present Illness: The patient is a 68 year old M, with past medical history listed below, who presented to [facility] on 12/11/2018 secondary to an elective right reverse total shoulder arthroplasty. Patient reportedly was of his usual health prior to surgical intervention. Surgery was reportedly unremarkable. However, postoperatively, patient started to become more hypoxic and wheezing. Patient was seen by the hospitalist and attempted BiPAP therapy overnight. Patient was unable to tolerate, so a pulmonary consult was obtained. Patient states he feels better this morning. Patient denies any current chest pain, nausea, vomiting, sinus congestion, epistaxis or hemoptysis. Patient has not had any recent illness or sick contacts. Patient does report that he may be getting more short of breath with activity, but I get along. Patient states he is never required supplemental oxygen previously. Patient is never been seen by a psychology assistant and is never had PFTs. Patient does report an extensive smoking history and states he has had a heart attack in the past when his had cancer and my stress was high. Patient reportedly does have high cholesterol, but no data is available for review. Patient does not use any inhalers at baseline. Patient does report a history of SHANNAN for which she wears CPAP at home. 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 Patient denies any exposure to asbestos or TB. Review of systems otherwise negative from a constitutional, HEENT, respiratory, cardiovascular, GI, genitourinary, musculoskeletal, skin, neurologic, psychiatric and hematologic system unless stated above. Past Medical History Past Medical History (Chronic Problems): Chronic Problems SHANNAN (obstructive sleep apnea) (Chronic) Reportedly on CPAP Hypertension (Chronic) Hyperlipidemia (Chronic) Coronary artery disease (Chronic) Allergies No Known Allergies Allergy (Verified 12/11/18 07:27) Home Medications: Ambulatory Orders Medication Instructions Recorded Cholecalciferol (Vitamin D3) 1,000 unit PO DAILY 11/27/18 [Vitamin D3] Lisinopril [Zestril] 5 mg PO DAILY 11/27/18 Metoprolol Tartrate 25 mg PO BID 11/27/18 [place]-3 Fatty Acids/Fish Oil 1 ea PO BID 11/27/18 [[place] 3 1,000 mg Softgel] Simvastatin [Zocor] 40 mg PO QHS 11/27/18 Acetaminophen [Tylenol] 1,000 mg PO Q8 #90 tab 12/13/18 Aspirin 325 mg PO DAILY@0800 #30 tab 12/13/18 Ensure Surgery 237 ml PO TIDCM #30 liquid 12/13/18 Famotidine [Pepcid] 20 mg PO DAILY #30 tab 12/13/18 Senna/Docusate Sodium [Senokot-S] 2 tab PO BID tab 12/13/18 traMADol [Ultram] 50 mg PO Q6H PRN PRN #30 tab 12/13/18 Smoking Status: Current some day smoker Tobacco Use: Cigarettes, Pipe Review of Systems Comment: See HPI Patient Problems: Active and Suspected Problems Hypoxia (Acute) Objective: Chest x-ray was personally reviewed and shows bibasilar infiltrates versus atelectasis with small effusions. Patient does appear to have a generous right heart border. No pulmonary function test, echocardiogram or other preoperative testing is available for review. - Physical Exam General: Alert, Oriented x3, Cooperative, No apparent distress, Well developed, Well nourished, - - Obese. Speaking in full sentences. HEENT: Atraumatic, PERRLA, EOMI, Normocephalic, - - No scleral icterus or injection noted Oral: Moist Mucosa, No Gingival or Mucosal Lesions/ Ulcerations Neck: Supple, No JVD, No Nodes, Trachea Midline Lungs: No rhonchi, No rales, Diminished, Wheezes Cardiovascular: Regular rate, Regular Rhythm, Normal S1, Normal S2, No murmurs, No rub noted, No Gallop Abdomen: Bowel Sounds Present, Soft, Non Tender, Non-Distended, Obese Extremities: No clubbing, No cyanosis, Capillary Refill Less than 3 Seconds, Edema Skin: No rashes, No breakdown, Incision - Not evaluated secondary to dressing Musculoskeletal: No Tenderness to Palpation of Joints or Extremities Lymphatic: No Cervical, Supraclavicular, or Inguinal Adenopathy Neurological: Cranial nerves II-XII grossly intact, Neuro grossly intact, Motor Exam 5/5 strength throughout Psych/Mental Status: Alert and oriented to time, place, person, mood and affect Vital Signs Temp Pulse Resp BP Pulse Ox 37.1 C 88 20 H 154/69 H 91 12/13/18 02:01 12/13/18 07:01 12/13/18 07:01 12/13/18 02:01 12/13/18 07:01 Oxygen Flow Rate (L/min) 3 Oxygen Delivery Method Nasal Cannula Weight: 98.2 kg Body Mass Index (BMI) 36.0 Intake and Output for Last 24 Hours 12/11/18 12/12/18 12/13/18 23:59 23:59 23:59 Intake Total 4037.08 / 4157.08 1970.00 / 2770.00 1300 / 1300 Output Total 300 / 950 1400 / 1400 Balance 3737.08 / 3207.08 570.00 / 1370.00 1300 / 1300 Laboratory Tests Past 24 Hrs 12/12/18 12/12/18 17:11 23:48 Specimen Type ART ART Sample Site L Radial L Radial pH 7.37 7.38 Bicarbonate Actual 35.2 H 33.9 H POC Total CO2 37 36 Base Excess 10 H 9 H O2 Saturation 91 L 94 L O2 % 30 ABG pCO2 60.4 H 57.8 H ABG pO2 65 L 73 L Xavi Test POS POS Respiration Rate 12 O2 Delivery Device Nasal Can Bi / C PAP Liter Flow 3.0 EPAP 4 IPAP 8 Blood Gas Notified Whom HOSP HOSP Blood Gas Notified Time 5095 9373 Laboratory Tests 12/12/18 12/12/18 12/12/18 Range/Units 23:48 17:11 05:36 WBC Corrected WBC RBC Hgb Hct MCV MCH MCHC RDW Std Deviation RDW Coeff of Grabiel Plt Count MPV Immature Gran % (Auto) Neut % (Auto) Lymph % (Auto) [place] % (Auto) Eos % (Auto) Baso % (Auto) Absolute Neuts (auto) Absolute Lymphs (auto) Total Counted Neutrophils % (Manual) Band Neutrophils % Lymphocytes % (Manual) Monocytes % (Manual) Eosinophils % (Manual) Basophils % (Manual) Metamyelocytes % Myelocytes % Promyelocytes % Blast Cells % Plasma Cell % (Manual) Other Cells % Nucleated RBC % Nucleated RBCs/100 WBC Differential Comment Diff Path Review Hypersegmented Neuts Atypical Lymphocytes Reactive Lymphocytes Smudge Cells Toxic Granulation Toxic Vacuolation Dohle Bodies Karla Rods Platelet Estimate Plt Morphology Comment RBC Morphology Polychromasia Hypochromasia Poikilocytosis Basophilic Stippling Anisocytosis Microcytosis Macrocytosis Spherocytes Sickle Cells Target Cells Tear Drop Cells Ovalocytes Stomatocytes [place] Bodies [place] Cells Bite Cells Crenated Cell Acanthocytes (Spur) Rouleaux Schistocytes Specimen Type ART ART Sample Site L Radial L Radial pH 7.38 7.37 (7.35-7.45) Bicarbonate Actual 33.9 H 35.2 H (22-26) mmol/L POC Total CO2 36 37 mmol/L Base Excess 9 H 10 H (-2 to +2) mmol/L O2 Saturation 94 L 91 L (95-99) % O2 % 30 ABG pCO2 57.8 H 60.4 H (35-45) mmHg ABG pO2 73 L 65 L (75-100) mmHG Xavi Test POS POS Respiration Rate 12 O2 Delivery Device Bi / C PAP Nasal Can Liter Flow 3.0 /min EPAP 4 IPAP 8 Blood Gas Notified Whom HOSP HOSP Blood Gas Notified Time 2340 1710 Sodium 137 (136-145) mmol/L Potassium 4.7 (3.5-5.1) mmol/L Chloride 101 (98-107) mmol/L Carbon Dioxide 35.0 H (21.0-32.0) mmol/L Anion Gap 1 L (5-15) BUN 14 (7-18) mg/dL Creatinine 0.58 L (0.70-1.30) mg/dL Estim Creat Clear Calc 61.50 ml/min Est GFR (MDRD) Af Amer 179 (>60) mL/min Est GFR (MDRD) Non-Af 148 (>60) mL/min BUN/Creatinine Ratio 24.2 H (10-20) RATIO Glucose 117 H (74-106) mg/dL Calcium 8.1 L (8.5-10.1) mg/dL POC Glucose (70-110) mg/dL 12/12/18 12/11/18 11/27/18 Range/Units 05:36 07:31 16:03 WBC 12.0 H Cancelled Corrected WBC Cancelled RBC 3.66 L Cancelled Hgb 11.1 L Cancelled Hct 35.6 L Cancelled MCV 97.3 H Cancelled MCH 30.3 Cancelled MCHC 31.2 L Cancelled RDW Std Deviation 46.2 H Cancelled RDW Coeff of Grabiel 12.9 Cancelled Plt Count 199 Cancelled MPV 9.9 Cancelled Immature Gran % (Auto) Cancelled Neut % (Auto) Cancelled Lymph % (Auto) Cancelled [place] % (Auto) Cancelled Eos % (Auto) Cancelled Baso % (Auto) Cancelled Absolute Neuts (auto) Cancelled Absolute Lymphs (auto) Cancelled Total Counted Cancelled Neutrophils % (Manual) Cancelled Band Neutrophils % Cancelled Lymphocytes % (Manual) Cancelled Monocytes % (Manual) Cancelled Eosinophils % (Manual) Cancelled Basophils % (Manual) Cancelled Metamyelocytes % Cancelled Myelocytes % Cancelled Promyelocytes % Cancelled Blast Cells % Cancelled Plasma Cell % (Manual) Cancelled Other Cells % Cancelled Nucleated RBC % Cancelled Nucleated RBCs/100 WBC Cancelled Differential Comment Cancelled Diff Path Review Cancelled Hypersegmented Neuts Cancelled Atypical Lymphocytes Cancelled Reactive Lymphocytes Cancelled Smudge Cells Cancelled Toxic Granulation Cancelled Toxic Vacuolation Cancelled Dohle Bodies Cancelled Karla Rods Cancelled Platelet Estimate Cancelled Plt Morphology Comment Cancelled RBC Morphology Cancelled Polychromasia Cancelled Hypochromasia Cancelled Poikilocytosis Cancelled Basophilic Stippling Cancelled Anisocytosis Cancelled Microcytosis Cancelled Macrocytosis Cancelled Spherocytes Cancelled Sickle Cells Cancelled Target Cells Cancelled Tear Drop Cells Cancelled Ovalocytes Cancelled Stomatocytes Cancelled [place] Bodies Cancelled [place] Cells Cancelled Bite Cells Cancelled Crenated Cell Cancelled Acanthocytes (Spur) Cancelled Rouleaux Cancelled Schistocytes Cancelled Specimen Type Sample Site pH (7.35-7.45) Bicarbonate Actual (22-26) mmol/L POC Total CO2 mmol/L Base Excess (-2 to +2) mmol/L O2 Saturation (95-99) % O2 % ABG pCO2 (35-45) mmHg ABG pO2 (75-100) mmHG Xavi Test Respiration Rate O2 Delivery Device Liter Flow /min EPAP IPAP Blood Gas Notified Whom Blood Gas Notified Time Sodium (136-145) mmol/L Potassium (3.5-5.1) mmol/L Chloride (98-107) mmol/L Carbon Dioxide (21.0-32.0) mmol/L Anion Gap (5-15) BUN (7-18) mg/dL Creatinine (0.70-1.30) mg/dL Estim Creat Clear Calc ml/min Est GFR (MDRD) Af Amer (>60) mL/min Est GFR (MDRD) Non-Af (>60) mL/min BUN/Creatinine Ratio (10-20) RATIO Glucose (74-106) mg/dL Calcium (8.5-10.1) mg/dL POC Glucose 158 H (70-110) mg/dL 11/27/18 Range/Units 15:47 WBC Corrected WBC RBC Hgb Hct MCV MCH MCHC RDW Std Deviation RDW Coeff of Grabiel Plt Count MPV Immature Gran % (Auto) Neut % (Auto) Lymph % (Auto) [place] % (Auto) Eos % (Auto) Baso % (Auto) Absolute Neuts (auto) Absolute Lymphs (auto) Total Counted Neutrophils % (Manual) Band Neutrophils % Lymphocytes % (Manual) Monocytes % (Manual) Eosinophils % (Manual) Basophils % (Manual) Metamyelocytes % Myelocytes % Promyelocytes % Blast Cells % Plasma Cell % (Manual) Other Cells % Nucleated RBC % Nucleated RBCs/100 WBC Differential Comment Diff Path Review Hypersegmented Neuts Atypical Lymphocytes Reactive Lymphocytes Smudge Cells Toxic Granulation Toxic Vacuolation Dohle Bodies Karla Rods Platelet Estimate Plt Morphology Comment RBC Morphology Polychromasia Hypochromasia Poikilocytosis Basophilic Stippling Anisocytosis Microcytosis Macrocytosis Spherocytes Sickle Cells Target Cells Tear Drop Cells Ovalocytes Stomatocytes [place] Bodies [place] Cells Bite Cells Crenated Cell Acanthocytes (Spur) Rouleaux Schistocytes Specimen Type Sample Site pH (7.35-7.45) Bicarbonate Actual (22-26) mmol/L POC Total CO2 mmol/L Base Excess (-2 to +2) mmol/L O2 Saturation (95-99) % O2 % ABG pCO2 (35-45) mmHg ABG pO2 (75-100) mmHG Xavi Test Respiration Rate O2 Delivery Device Liter Flow /min EPAP IPAP Blood Gas Notified Whom Blood Gas Notified Time Sodium 138 (136-145) mmol/L Potassium 4.1 (3.5-5.1) mmol/L Chloride 96 L (98-107) mmol/L Carbon Dioxide 34.0 H (21.0-32.0) mmol/L Anion Gap 8 (5-15) BUN 17 (7-18) mg/dL Creatinine 0.68 L (0.70-1.30) mg/dL Estim Creat Clear Calc 61.50 ml/min Est GFR (MDRD) Af Amer 150 (>60) mL/min Est GFR (MDRD) Non-Af 124 (>60) mL/min BUN/Creatinine Ratio 25.1 H (10-20) RATIO Glucose 92 (74-106) mg/dL Calcium 9.1 (8.5-10.1) mg/dL POC Glucose (70-110) mg/dL Clinical Impression(s) from Imaging Studies Chest X-Ray 11/27/18 16:15 IMPRESSION: There are findings consistent with COPD. There is no evidence of acute chest disease. Electronically Signed: Jose J Kraft MD at 16:37 EDT , Service support , Shoulder X-Ray 12/11/18 07:19 IMPRESSION: Status post right reverse shoulder replacement. There is good alignment. Electronically Signed: Alexandr Deluna, at 14:00 EDT , Service support , Chest X-Ray 12/12/18 16:33 IMPRESSION: Mild bibasilar infiltrates with small bilateral effusions. Electronically Signed: Valeriano Archer, at 17:38 EDT Tel , Service support , Assessment/Plan All Active Problems Hypoxia (Acute) RECOMMENDATIONS: 1. Initiate incentive spirometer 2. Continue bronchodilators 3. Judicious use of opiate pain medications 4. Initiate baseline CPAP therapy, preferably home machine 5. Outpatient complete PFT 6. Walking oximetry prior to discharge IMPRESSIONS: 1. Acute hypoxic respiratory insufficiency Suspicion for multifactorial etiology of patient's hypoxemia. Patient alvin fregoso has an element of atelectasis on chest x-ray and this should be addressed with incentive spirometer. Other concerns are probable underlying COPD given extensive smoking history, elevated bicarbonate and concurrent opiate medication. Patient also is noncompliant with obstructive sleep apnea, likely leading to more atelectasis. Patient may have an element of pulmonary hypertension given enlarged right heart border on chest x-ray. Patient should have a walking oximetry prior to discharge. Patient may require supplemental oxygen on discharge, but outpatient work-up with complete PFT and echocardiogram may be indicated if these have not been completed at an outside facility and are available for review. Use of bronchodilators while admitted to the hospital would be appropriate. 2. History of SHANNAN/nicotine abuse/coronary artery disease/obesity/poor historian/postop day #2 shoulder replacement Complicates care, management, recovery and prognosis. Nicotine patch can be applied if necessary. Patient can be completed on baseline cardiac medications from my perspective. Patient understands the role of weight loss and the overall disease plan of care. Patient will need to follow-up with primary care physician on discharge. Defer shoulder management to orthopedics. Code Visit Inpatient E&M: 59015 Init Hosp L2
[2018-12-13] MEDS: Ensure Surgery 237 ML LIQUID PO ×2 (09:45→12:35)
[2018-12-13] MEDS: Metoprolol Tartrate 25 MG Tablet PO ×2 (09:45→21:12)
[2018-12-13] MEDS: Lisinopril 5 MG Tablet PO (09:45)
[2018-12-13] MEDS: Famotidine 20 MG Tablet PO (09:45)
[2018-12-13] MEDS: Aspirin 325 MG Tablet PO (09:46)
--- NOTE | 2018-12-13 12:45 | PN_ITS ---
<Anirudh Branch - Last Filed: 12/13/18 12:45> Patient Problems: Active and Suspected Problems Hypoxia (Acute) Subjective: Continues to deny SOB. Less dyspnea with conversation. Still requiring o2, does not use at home. No cough. Ongoing wheezing. Did not tolerate Bipap due to too much force on his face. He plans to bring his cpap tonight. - Physical Exam General: Alert, Oriented x3, Cooperative HEENT: Atraumatic, PERRLA, EOMI, Normocephalic Neck: Supple, No JVD, Negative Carotid Bruits Lungs: Normal air movement, Wheezes Cardiovascular: Regular rate, No murmurs Abdomen: Bowel Sounds Present, Soft, Non Tender, Obese Extremities: No edema, Capillary Refill Less than 3 Seconds Skin: No rashes, No breakdown Musculoskeletal: No Tenderness to Palpation of Joints or Extremities Neurological: Cranial nerves II-XII grossly intact Psych/Mental Status: Normal Affect, Appropriate, Alert and oriented to time, place, person, mood and affect Vital Signs Temp Pulse Resp BP Pulse Ox 98.3 F 93 20 H 150/74 H 92 12/13/18 11:00 12/13/18 11:00 12/13/18 11:00 12/13/18 11:00 12/13/18 11:00 Oxygen Flow Rate (L/min) 3 Oxygen Delivery Method Nasal Cannula Weight: 216 lb 7.903 oz Body Mass Index (BMI) 36.0 Intake and Output for Last 24 Hours 12/11/18 12/12/18 12/13/18 23:59 23:59 23:59 Intake Total 4037.08 / 4157.08 1970.00 / 2770.00 1949 Output Total 300 / 950 1400 / 1400 Balance 3737.08 / 3207.08 570.00 / 1370.00 1949 Laboratory Tests Past 24 Hrs 12/12/18 12/12/18 17:11 23:48 Specimen Type ART ART Sample Site L Radial L Radial pH 7.37 7.38 Bicarbonate Actual 35.2 H 33.9 H POC Total CO2 37 36 Base Excess 10 H 9 H O2 Saturation 91 L 94 L O2 % 30 ABG pCO2 60.4 H 57.8 H ABG pO2 65 L 73 L Xavi Test POS POS Respiration Rate 12 O2 Delivery Device Nasal Can Bi / C PAP Liter Flow 3.0 EPAP 4 IPAP 8 Blood Gas Notified Whom HOSP HOSP Blood Gas Notified Time 1917 8086 Medical Necessity - Tobacco Use Smoking Status: Current some day smoker Tobacco Use: Cigarettes, Pipe Assessment/Plan All Active Problems Hypoxia (Acute) 1. Right total shoulder post op day #2 - care as per ortho. 2. Hypoxia, hypercapnia 2/2 Acute COPD (presumed) exacerbation, complicated by SHANNAN - solumedrol, duonebs, incentive spirometer. CXR with effusions/infiltrate - doubt pneumonia. Continue solumedrol, aggressive IS. CPAP tonight. Did not tolerate bipap. Needs complete smoking cessation. Needs pulmonology follow up and PFTs as o/p. May need home o2. Still very wheezy, continue overnight tx as above. 3. Hx SHANNAN - compliant with home CPAP 4. Nicotine abuse - pipe tobacco and chewing tobacco. He states he will quit. Patch if desired. 5. CAD - prior NC. KAITLIN, metoprolol, aspirin, statin. Thank you for the opportunity to participate in the care of this patient. This patient was seen by Anirudh Branch PA-C under the supervision of Doctor Vyas <Jovanni Vyas - Last Filed: 12/13/18 14:36> Subjective: Breathing better. - Physical Exam General: Alert, Cooperative HEENT: Atraumatic, Normocephalic Lungs: Diminished, Wheezes Cardiovascular: Regular rate, No murmurs Abdomen: Bowel Sounds Present, Soft, Non Tender Extremities: No edema, No Calf Tenderness Psych/Mental Status: Normal Affect, Appropriate Vital Signs Temp Pulse Resp BP Pulse Ox 36.8 C 88 20 H 150/74 H 92 12/13/18 11:00 12/13/18 14:28 12/13/18 14:28 12/13/18 11:00 12/13/18 11:00 Oxygen Flow Rate (L/min) 2 Oxygen Delivery Method Nasal Cannula Weight: 98.2 kg Body Mass Index (BMI) 36.0 Intake and Output for Last 24 Hours 12/11/18 12/12/18 12/13/18 23:59 23:59 23:59 Intake Total 4037.08 / 4157.08 1970.00 / 2770.00 1949 Output Total 300 / 950 1400 / 1400 Balance 3737.08 / 3207.08 570.00 / 1370.00 1949 Laboratory Tests Past 24 Hrs 12/12/18 12/12/18 17:11 23:48 Specimen Type ART ART Sample Site L Radial L Radial pH 7.37 7.38 Bicarbonate Actual 35.2 H 33.9 H POC Total CO2 37 36 Base Excess 10 H 9 H O2 Saturation 91 L 94 L O2 % 30 ABG pCO2 60.4 H 57.8 H ABG pO2 65 L 73 L Xavi Test POS POS Respiration Rate 12 O2 Delivery Device Nasal Can Bi / C PAP Liter Flow 3.0 EPAP 4 IPAP 8 Blood Gas Notified Whom HOSP MD HOSP MD Blood Gas Notified Time 7985 [id number] Assessment/Plan Patient seen and examined independently. Data reviewed. I agree with the above note by the physician assistant to the vice president. 1. Acute hypoxic and hypercapnic respiratory insufficiency * Currently improved * Likely secondary to COPD exacerbation * Continue with bronchodilators and methylprednisolone * Pulmonary following * Check amatory pulse ox prior to discharge * Advised smoking cessation. Also told patient that stopping smoking will help progression of his likely COPD but not reverse the damage that has been performed already Would recommend monitoring the patient overnight to ensure that he is moving the right direction and doing better on the , I would anticipate the patient be able to be discharged and transition over to a prednisone burst (40 mg daily for 5 days). Code Visit Inpatient E&M: 11511 Subs Hosp L2
--- NOTE | 2018-12-13 13:51 | CASEMGMT ---
Social Work Note RODDY spoke with PT who states pt is able to discharge home. RODDY met with pt and pt's daughter present in room. Pt states that he feels safe returning home and would like to discharge home. Pt denied needing HHC or outpatient therapy at this time. Pt denied needing DME. RODDY informed pt that this worker will cancel referral to [facility]. Pt states understanding. RN CM updated on plan for pt to return home. RODDY placed a call to Gabi at [facility] and updated her to cancel referral. Gabi states understanding. RN updated on plan for pt to return home once medically cleared. Plan: Return Home once medically cleared [place]ool Lucas PROFESSIONAL SERVICES CONSULTANT, TOOL STORAGE ATTENDANT
[2018-12-13] MEDS: Atorvastatin Calcium 20 MG Tablet PO (21:11)
[2018-12-13] MEDS: Senna/Docusate Sodium 1 Tablet 2 TABLET PO (21:11)
--- NOTE | 2018-12-13 22:33 | CPS ---
Pts. home PAP unit setup at bedside. Water chamber filled and mask placed on with comfort. Dentures were taken out prior to placing mask and set at bedside in container. Pt. started on PAP unit with no oxygen added, but shortly after SpO2 showed that patient would require O2 to be bled in. 2L Bled O2 into machine with Pulse Ox reading 93%. Call light at bedside, Pt. understands to hit call light if any problems occur with machine. RN aware that machine was placed on pt.
[2018-12-14] VITALS (12 sets, daily range): BP systolic 138–150; BP diastolic 76–92; PULSE 81–100; RESP 18; TEMP 36.2–37.2; O2SAT 84–96
[2018-12-14] MEDS: 0.9% Saline Lock 10 ML Syringe IV (05:32)
[2018-12-14] MEDS: Acetaminophen 500 MG Tablet 1000 MG PO ×2 (05:33→14:42)
[2018-12-14] MEDS: Ipratropium/Albuterol Sulfate 3 ML AMPUL.NEB INHALATION ×2 (06:58→10:46)
[2018-12-14 07:19] LABS: Anion Gap 5 (5-15); BUN 18 mg/dL (7-18); BUN/Creat Ratio 30.8 RATIO (10-20); Calcium,Total 8.7 mg/dL (8.5-10.1); Chloride 100 mmol/L (98-107); Creatinine, Serum 0.58 mg/dL (0.70-1.30); EST Glomerular Filtration Rate 147 mL/min (>60); Est Glom Filt Rate - Afr Amer 177 mL/min (>60); Glucose 132 mg/dL (74-106); Potassium 4.3 mmol/L (3.5-5.1); Sodium Level 137 mmol/L (136-145)
[2018-12-14] MEDS: Aspirin 325 MG Tablet PO (08:08)
[2018-12-14] MEDS: Metoprolol Tartrate 25 MG Tablet PO (08:09)
[2018-12-14] MEDS: Senna/Docusate Sodium 1 Tablet 2 TABLET PO (08:10)
[2018-12-14] MEDS: Famotidine 20 MG Tablet PO (08:10)
[2018-12-14] MEDS: Lisinopril 5 MG Tablet PO (08:10)
--- NOTE | 2018-12-14 08:13 | NURSING ---
DR VILLATORO IN TO SEE PT. ASKED FOR P.O. CHECK ON RA. = 87%. REPLACED O2 @ 2L NC. DR VILLATORO AWARE.
--- NOTE | 2018-12-14 08:16 | PCM.PN.PUL ---
Patient Problems: Active and Suspected Problems Hypoxia (Acute) Subjective: Patient did well overnight. Patient did tolerate CPAP therapy with some difficulty per staff. Patient is reporting no symptoms from a respiratory standpoint at this time despite saturating 88% on room air. Patient denies any chest pain, abdominal pain, nausea or vomiting. Patient does report right arm pain. - Physical Exam General: Alert, Oriented x3, Cooperative, No apparent distress, Well developed, Well nourished, - - Obese. Speaking in full sentences. HEENT: Atraumatic, PERRLA, EOMI, Normocephalic, - - No scleral icterus or injection Oral: Moist Mucosa, No Gingival or Mucosal Lesions/ Ulcerations Neck: Supple, No JVD, No Nodes, Trachea Midline Lungs: No rhonchi, No rales, Wheezes Cardiovascular: Normal S1, Normal S2, No murmurs, No rub noted, No Gallop, Tachycardic Abdomen: Bowel Sounds Present, Soft, Non Tender, Non-Distended, Obese Extremities: No clubbing, No cyanosis, Capillary Refill Less than 3 Seconds, Edema Skin: No rashes, No breakdown Musculoskeletal: No Tenderness to Palpation of Joints or Extremities Lymphatic: No Cervical, Supraclavicular, or Inguinal Adenopathy Neurological: Cranial nerves II-XII grossly intact, Neuro grossly intact, Motor Exam 5/5 strength throughout Psych/Mental Status: Alert and oriented to time, place, person, mood and affect Vital Signs Temp Pulse Resp BP Pulse Ox 37.2 C 100 18 150/92 H 87 12/14/18 07:54 12/14/18 08:09 12/14/18 08:00 12/14/18 08:09 12/14/18 08:00 Oxygen Flow Rate (L/min) 3 Oxygen Delivery Method Room Air Weight: 98.2 kg Body Mass Index (BMI) 36.0 Intake and Output for Last 24 Hours 12/12/18 12/13/18 12/14/18 23:59 23:59 23:59 Intake Total 1970.00 / 2770.00 2550 / 3150 1100 / 1100 Output Total 1400 / 1400 Balance 570.00 / 1370.00 2550 / 3150 1100 / 1100 Laboratory Tests Past 24 Hrs 12/14/18 06:26 Sodium 137 Potassium 4.3 Chloride 100 Carbon Dioxide 32.0 Anion Gap 5 BUN 18 Creatinine 0.58 L Estim Creat Clear Calc 61.50 Est GFR (MDRD) Af Amer 177 Est GFR (MDRD) Non-Af 147 BUN/Creatinine Ratio 30.8 H Glucose 132 H Calcium 8.7 Medical Necessity - Tobacco Use Smoking Status: Current some day smoker Tobacco Use: Cigarettes, Pipe Assessment/Plan All Active Problems Hypoxia (Acute) RECOMMENDATIONS: 1. Continue incentive spirometer 2. Continue bronchodilators. Can transition to prednisone and wean over 12 to 14 days 3. Judicious use of opiate pain medications 4. Continue home CPAP therapy 5. Outpatient complete PFT 6. Walking oximetry prior to discharge. Will likely need supplemental oxygen 7. Okay to discharge from pulmonary perspective with outpatient work-up as described 8. Follow-up in pulmonary office in 2 weeks with nurse practitioner IMPRESSIONS: 1. Acute hypoxic respiratory insufficiency Suspicion for multifactorial etiology of patient's hypoxemia as described in yesterday's note. Patient is reporting no symptoms despite saturating 88% on room air. Clinical suspicion is patient has had hypoxemia at home for quite some time and has relatively advanced lung disease with multifactorial etiology for hypoxemia. This can likely be addressed as an outpatient and does not require hospitalization once oxygenation issues are addressed. Patient should have a walking oximetry with home oxygen as recommended. Patient can be transition to prednisone therapy and wean over the next 12 to 14 days from my perspective. Patient can follow-up with nurse practitioner after 2 weeks for testing. 2. History of SHANNAN/nicotine abuse/coronary artery disease/obesity/poor historian/postop day #3 shoulder replacement Complicates care, management, recovery and prognosis. Nicotine patch can be applied if necessary. Patient can be completed on baseline cardiac medications from my perspective. Patient understands the role of weight loss and the overall disease plan of care. Patient will need to follow-up with primary care physician on discharge. Defer shoulder management to orthopedics. Code Visit Inpatient E&M: 89785 Subs Hosp L2
--- NOTE | 2018-12-14 09:41 | PN_ITS ---
Patient Problems: Active and Suspected Problems Hypoxia (Acute) Subjective: breathing well. No new events overnight. Vitals/I&O's: Vital Signs Temp Pulse Resp BP Pulse Ox 37.2 C 100 18 150/92 H 87 12/14/18 07:54 12/14/18 08:09 12/14/18 08:00 12/14/18 08:09 12/14/18 08:00 Oxygen Flow Rate (L/min) 3 Oxygen Delivery Method Room Air Weight: 98.2 kg Body Mass Index (BMI) 36.0 Intake and Output for Last 24 Hours 12/12/18 12/13/18 12/14/18 23:59 23:59 23:59 Intake Total 1970.00 / 2770.00 2550 / 3150 1100 / 1100 Output Total 1400 / 1400 Balance 570.00 / 1370.00 2550 / 3150 1100 / 1100 General: Alert, No apparent distress HEENT: Atraumatic, Normocephalic Oral: Moist Mucosa, No Gingival or Mucosal Lesions/ Ulcerations Neck: No Nodes, Thyroid Normal Size and Texture Lungs: Clear to auscultation, Diminished Cardiovascular: Regular rate, Regular Rhythm, Normal S1, Normal S2 Abdomen: Bowel Sounds Present, Soft, Non Tender, Non-Distended Extremities: No edema, No Calf Tenderness Skin: No rashes, No breakdown Psych/Mental Status: Normal Affect, Appropriate Laboratory Results 12/14/18 06:26: Sodium 137, Potassium 4.3, Chloride 100, Carbon Dioxide 32.0, Anion Gap 5, BUN 18, Creatinine 0.58 L, Estim Creat Clear Calc 61.50, Est GFR (MDRD) Af Amer 177, Est GFR (MDRD) Non-Af 147, BUN/Creatinine Ratio 30.8 H, Glucose 132 H, Calcium 8.7 Current Medications Acetaminophen (Tylenol) 1,000 mg PO Q8 [facility] Last Admin: 12/14/18 05:33 Dose: 1,000 mg Documented by: Albuterol/Ipratropium (Duoneb) 3 ml INHALATION Q4HWA.RT [facility] Last Admin: 12/14/18 06:58 Dose: 3 ml Documented by: Aspirin (Aspirin) 325 mg PO DAILY@0800 [facility] Last Admin: 12/14/18 08:08 Dose: 325 mg Documented by: Atorvastatin Calcium (Lipitor) 20 mg PO QHS [facility] Last Admin: 12/13/18 21:11 Dose: 20 mg Documented by: Cholecalciferol (Vitamin D) 1,000 unit PO DAILY [facility] Last Admin: 12/14/18 08:10 Dose: 1,000 unit Documented by: Enteral Nutritional Formula (Ensure Surgery) 237 ml PO TIDCM [facility] Last Admin: 12/14/18 08:12 Dose: Not Given Documented by: Famotidine (Pepcid) 20 mg PO DAILY [facility] Last Admin: 12/14/18 08:10 Dose: 20 mg Documented by: Sodium Chloride () 250 mls @ 15 mls/hr IV .[id number] PRN PRN Reason: Saline Flush Insulin Human Lispro (Humalog Kwikpen (Bkc)) 1 - 6 unit SC Q4H PRN PRN; Protocol PRN Reason: BG>/= 180, SEE PROTOCOL Lisinopril (Zestril) 5 mg PO DAILY [facility] Last Admin: 12/14/18 08:10 Dose: 5 mg Documented by: Metoprolol Tartrate (Lopressor (Beta Reed)) 25 mg PO BID [facility] Last Admin: 12/14/18 08:09 Dose: 25 mg Documented by: Ondansetron HCl (Zofran) 4 mg IV Q8H PRN PRN PRN Reason: NAUSEA Prednisone () 40 mg PO DAILY@0800 [facility] Promethazine HCl (Phenergan) 12.5 mg IM Q6H PRN PRN; Protocol PRN Reason: NAUSEA/VOMITING Senna/Docusate Sodium (Senokot-S, Ida-Colace) 2 tablet PO BID [facility] Last Admin: 12/14/18 08:10 Dose: 2 tablet Documented by: Sodium Chloride () 5 - 15 ml IV UD PRN PRN Reason: SALINE FLUSH Last Admin: 12/14/18 05:32 Dose: 10 ml Documented by: Tramadol HCl (Ultram) 50 mg PO Q6H PRN PRN PRN Reason: Pain Score 4-10/10 STROKE Vital Signs/Narrative: Vital Signs Temp Pulse Resp BP Pulse Ox 12/14/18 08:09 100 150/92 H 12/14/18 08:00 18 87 12/14/18 07:54 37.2 C 100 18 150/92 H 93 12/14/18 06:58 87 18 92 Medical Necessity - Tobacco Use Smoking Status: Current some day smoker Tobacco Use: Cigarettes, Pipe Assessment/Plan All Active Problems Hypoxia (Acute) 1. Acute hypoxic and hypercapnic respiratory insufficiency * Currently improved * likely chronic * Likely secondary to COPD exacerbation * Discussed with pulmonology who feels patient can be discharged with a 2-week course of prednisone taper and follow-up with the nurse practitioner for additional testing, including pulmonary function test. * Check ambulatory pulse ox prior to discharge * Will add albuterol metered-dose inhaler. * Advised smoking cessation. Also told patient that stopping smoking will help progression of his likely COPD but not reverse the damage that has been performed already Patient can be discharged from medical standpoint to home. Will need oxygen at home given his hypoxia (which may be chronic). Rx for prednisone and albuterol sent to [facility] pharmacy. Code Visit Inpatient E&M: 05488 Subs Hosp L2
--- NOTE | 2018-12-14 10:45 | PCM.PN.ORT ---
Patient Problems: Active and Suspected Problems Hypoxia (Acute) Subjective: Patient did well overnight. His COPD exacerbation seems to continue to resolve. Will need to go home also home oxygen and prednisone taper. Also with some inhalers. This is been arranged by the medicine service appreciate medical input on this patient. He is also improved in his mobility and stabilization. Plan is for home discharge today with home oxygen. No acute events overnight no chest pain or shortness of breath. - Physical Exam General: Alert, Oriented x3, Cooperative Lungs: - - Nonlabored breathing Extremities: - - Right upper extremity: Dressing is clean dry and intact. Sensation is intact light touch axillary/R/M/U. Motor is intact R/M/U distally. Vital Signs Temp Pulse Resp BP Pulse Ox 99.0 F 100 18 150/92 H 91 12/14/18 07:54 12/14/18 08:09 12/14/18 08:00 12/14/18 08:09 12/14/18 09:00 Oxygen Flow Rate (L/min) [At 3 REST on Room Air] Oxygen Flow Rate (L/min) 3 Oxygen Delivery Method Room Air Weight: 216 lb 7.903 oz Body Mass Index (BMI) 36.0 Intake and Output for Last 24 Hours 12/12/18 12/13/18 12/14/18 23:59 23:59 23:59 Intake Total 1970.00 / 2770.00 2550 / 3150 1100 / 1100 Output Total 1400 / 1400 Balance 570.00 / 1370.00 2550 / 3150 1100 / 1100 Laboratory Tests Past 24 Hrs 12/14/18 06:26 Sodium 137 Potassium 4.3 Chloride 100 Carbon Dioxide 32.0 Anion Gap 5 BUN 18 Creatinine 0.58 L Estim Creat Clear Calc 61.50 Est GFR (MDRD) Af Amer 177 Est GFR (MDRD) Non-Af 147 BUN/Creatinine Ratio 30.8 H Glucose 132 H Calcium 8.7 Medical Necessity - Tobacco Use Smoking Status: Current some day smoker Tobacco Use: Cigarettes, Pipe Assessment/Plan All Active Problems Hypoxia (Acute) Postop day 3 right reverse total shoulder replacement. 1. PT: For ambulation, transfers and ADLs. Holding shoulder physical therapy. Should do elbow wrist and finger range of motion exercises 2. DVT prophylaxis: Aspirin daily 3. Pain control: Mostly Tylenol at this point, oxycodone is been ordered. 4. Respiratory difficulties: Appreciate medical management on this patient and pulmonology input. Symptoms seem to be resolving. Patient will be discharged home with home oxygen, prednisone taper and inhalers. 5. Disposition: Patient's difficulty with breathing and ambulation have steadily resolved. Patient is doing well at this time. Plan is for discharge home today. [facility] Office:
[2018-12-14] MEDS: predniSONE 20 MG Tablet 40 MG PO (10:54)
--- NOTE | 2018-12-19 11:10 | PCM.DC.SUM ---
Discharge Date and Diagnosis Date of Admission: 12/11/18 Date of Discharge: 12/14/18 - Primary Discharge Diagnosis reverse right total shoulder arthroplasty - Secondary Discharge Diagnosis Chronic Problems SHANNAN (obstructive sleep apnea) (Chronic) Reportedly on CPAP Hypertension (Chronic) Hyperlipidemia (Chronic) Coronary artery disease (Chronic) Hospital Course and Treatment Summary of Care Provided: Patient is a 68 year-old he has been having ongoing right shoulder complications and pain. After failing conservative measures, the patient opted to proceed with a right reverse total shoulder arthroplasty. The patient underwent the above-stated procedure on December 11, 2018. Patient did receive perioperative antibiotics. Intraoperatively was uneventful. For details please see dictated operative note. The patient was placed in thigh-high teds, bilateral SCDs, remained stable in recovery. Patient was admitted to the 3rd floor at [facility]. The patient's pain was managed with the use of IV and p.o. pain medications. Medicine was consult at for postoperative medical management. Patient also required consult from computer scientist Dr. Garcia. Hypoxia was thought to be from the atelectasis versus underlying COPD. Patient had significant hypoxia postoperatively that did require oxygen and prednisone. Patient's postoperative pain and hypoxia prevented patient from going home postop day 1. Patient participated in physical therapy at the hospital. Patient was discharged on postoperative day #3 to home. Patient was given medications stated below. Patient will follow up with [facility] per postop instructions for reassessment. Patient was also discharged home with oxygen as well as two-week course of prednisone taper. He will be following up with the computer scientist with additional testing and pulmonary function test. - Physical Exam Vitals/I&O's: Vital Signs Temp Pulse Resp BP Pulse Ox 97.2 F L 83 18 138/87 H 96 12/14/18 15:45 12/14/18 15:45 12/14/18 15:45 12/14/18 15:45 12/14/18 15:45 Oxygen Flow Rate (L/min) [At 3 REST on Room Air] Oxygen Flow Rate (L/min) 2 Oxygen Delivery Method Nasal Cannula Weight: 98.2 kg Body Mass Index (BMI) 36.0 Discharge Diet: No Restrictions Discharge Activity: May Not Drive May shower in (days): 1 - back to water May resume sexual activity in: 6-8 weeks Ice area for (Minutes): 20 - Ice area for 20 minutes each hour while awake Weight Bearing Status: No weight bearing - right arm Keep extremity elevated above heart level: Operative Extremity Call your doctor if your incision/area has: Continuous Slow Oozing, Sudden Increased Bleeding, Increased Pain/ Swelling, Increased Redness, Foul Smelling Discharge Call your doctor if you observe: Fever of 101 or Higher, Coldness, Increased Pain, Numbness or Tingling, Change in Color Remove Dressing in (days):: 12-16-2018 Additional Dressing/Incision Instructions:: If incision is clean dry and intact may leave the wound open to air and continue showering. If there is continued drainage continue daily dry dressing changes and keep incision clean dry and intact until there is no drainage. Home Medications: Medications to take at Discharge Cholecalciferol (Vitamin D3) [Vitamin D3] 1,000 unit PO DAILY 11/27/18 Lisinopril [Zestril] 5 mg PO DAILY 11/27/18 Metoprolol Tartrate 25 mg PO BID 11/27/18 Shellman-3 Fatty Acids/Fish Oil [Shellman 3 1,000 mg Softgel] 1 ea PO BID 11/27/18 Simvastatin [Zocor] 40 mg PO QHS 11/27/18 Acetaminophen [Tylenol] 1,000 mg PO Q8 #90 tab 12/13/18 Aspirin 325 mg PO DAILY@0800 #30 tab 12/13/18 Ensure Surgery 237 ml PO TIDCM #30 liquid 12/13/18 Famotidine [Pepcid] 20 mg PO DAILY #30 tab 12/13/18 Senna/Docusate Sodium [Senokot-S] 2 tab PO BID tab 12/13/18 traMADol [Ultram] 50 mg PO Q6H PRN PRN #30 tab 12/13/18 Albuterol Inhaler [Ventolin Hfa] 1 - 2 puff INHALATION Q4H PRN PRN #1 inhaler 12/14/18 Prednisone 10 mg PO DAILY #30 tab.ds.pk 12/14/18 Following Prescrptions Were Given to Patient: Aspirin 325 mg PO DAILY@0800 #30 tab Prescription Printed Ensure Surgery 237 ml PO TIDCM #30 liquid Prescription Printed Famotidine [Pepcid] 20 mg PO DAILY #30 tab Prescription Printed Prednisone 10 mg PO DAILY #30 tab.ds.pk Transmission Status: Received by [facility] Acetaminophen [Tylenol] 1,000 mg PO Q8 #90 tab Prescription Printed traMADol [Ultram] 50 mg PO Q6H PRN PRN #30 tab PRN Reason: Pain Score 4-10/10 Prescription Printed Albuterol Inhaler [Ventolin Hfa] 1 - 2 puff INHALATION Q4H PRN PRN #1 inhaler PRN Reason: Shortness Of Breath Transmission Status: Received by [facility] Primary Care Physician: Yeu Fitzgerald MD [Primary Care Provider] - Please Follow Up With: Liam Peñaloza PA-C When: 12-25-2018, 11:00 Medical Necessity - Tobacco Use Smoking Status: Current some day smoker Tobacco Use: Cigarettes, Pipe Meaningful Use Info Meaningful Use Diagnoses (Choose all that apply): None applicable
== END 2018-12-14 15:45 | disposition home or self-care (01) | DRG 483 ==
LOC: ACINP 07:07 → MS3 09:41
PROVIDERS: Physician Assistant; Admitting Provider Specialist; Family Provider Family Medicine; PCP Family Medicine; Referring Provider Specialist
PROC: 0RRJ00Z Replacement of Right Shoulder Joint with Reverse Ball and Socket Synthetic Substitute, Open Approach (ICD-10-PCS; CPT 23472; principal; 2018-12-11 09:15)
DX: M75.121 Complete rotator cuff tear or rupture of right shoulder, not specified as traumatic (principal); J44.1 Chronic obstructive pulmonary disease with (acute) exacerbation; J98.11 Atelectasis; R09.02 Hypoxemia; M19.211 Secondary osteoarthritis, right shoulder; I10 Essential (primary) hypertension; I25.10 Atherosclerotic heart disease of native coronary artery without angina pectoris; E78.2 Mixed hyperlipidemia; K21.9 Gastro-esophageal reflux disease without esophagitis; G47.33 Obstructive sleep apnea (adult) (pediatric); E66.01 Morbid (severe) obesity due to excess calories; Z68.36 Body mass index [BMI] 36.0-36.9, adult; F17.210 Nicotine dependence, cigarettes, uncomplicated; Z91.19 Patient's noncompliance with other medical treatment and regimen; I25.2 Old myocardial infarction; Z79.82 Long term (current) use of aspirin; Z79.899 Other long term (current) drug therapy; Z95.5 Presence of coronary angioplasty implant and graft
CPT/HCPCS: 36415; 36600; 71046; 73030; 80048; 82803; 82962; 85027; 87081; 93005; 94002; 94640; 97110; 97116; 97162; 97166; 97530; 97535; 99251; C1713; C1776; J7040; J7120; A4216; G0463; J2405

== ENCOUNTER → 2019-01-14 08:57 | Outpatient (CLI) | payer MEDICARE, SELFPAY ==
[2018-12-23 08:11] VITALS: BMI 36.6
--- NOTE | 2019-01-15 09:58 | PFT ---
INTRODUCTION: The patient is a 68-year-old male that presents for pulmonary function studies secondary to a diagnosis of shortness of breath. Respiratory therapy reports good patient effort. Bronchodilators were used during testing. INTERPRETATION: Forced expiration spirometry demonstrates the presence of a severe large airways obstructive ventilatory defect. There was a significant response to aerosolized bronchodilators noted. Spirograms are of good quality and do not plateau indicating slow emptying of the lungs. Body plethysmography was performed and reveals lung volumes to be within normal limits. Diffusing capacity by single breath CO is relatively preserved at 78% of predicted. IMPRESSION: Partially reversible severe large airways obstructive ventilatory defect with preserved lung volumes and diffusing capacity.
== END ==
PROVIDERS: Family Provider Family Medicine; PCP Family Medicine; Referring Provider Nurse Practitioner Acute Care; Visit Provider Nurse Practitioner Acute Care
DX: R06.02 Shortness of breath (principal)
CPT/HCPCS: 94060; 94726; 94729

== ENCOUNTER → 2019-01-15 08:43 | Outpatient (CLI) | payer MEDICARE, SELFPAY ==
[2018-12-23 08:11] VITALS: BMI 36.6
[2019-01-15 09:00] VITALS: PULSE 64; PULSE 73; PULSE 80; PULSE 82; PULSE 84; PULSE 85; PULSE 86; PULSE 90; O2SAT 92; O2SAT 93; O2SAT 94; O2SAT 95
--- NOTE | 2019-01-15 09:27 | ECHOCS_ITS ---
Reason For Study: DYSPNEA/SOB Procedure This was a 2D Doppler, Color Flow transthoracic echocardiogram. Exam performed in department. Left Ventricle Mild concentric left ventricular hypertrophy. The estimated ejection fraction is 65 %. Stage 1 diastolic dysfunction. No regional wall motion abnormalities noted. Right Ventricle Normal size and thickness. Normal systolic function. Atria The left atrium is moderately enlarged. Normal right atrium. Normal atrial septum. Mitral Valve Mild diffuse mitral valve thickening. Moderate mitral annular calcification extending into the posterior leaflet. Tricuspid Valve Normal tricuspid valve. Mild (1+) tricuspid valve insufficiency. Right ventricular systolic pressure estimated to be 37 mmHg. Mild pulmonary hypertension. Aortic Valve Trisinus/trileaflet aortic valve. Mild diffuse aortic valve thickening. Pulmonic Valve Normal pulmonic valve. Great Vessels Normal aortic root. Normal arch. Normal inferior vena cava. Inferior vena cava collapse with sniff. Pericardium/Pleural No pericardial effusion. MMode/2D Measurements & Calculations LVIDd: 5.0 cm IVSd: 1.5 cm Ao root diam: 3.1 cm LVIDs: 3.0 cm LVPWd: 1.3 cm RVDd: 3.3 cm FS: 40.9 % LAV(MOD-bp): 99.9 ml LA A4 area: 26.6 cm2 LA dimension(2D): 4.4 cm LAV(MOD-bp) Indexed: 48.5 ml/m2 LAV(MOD-sp2): 95.0 ml LAV(MOD-sp4): 95.9 ml RA A4 area: 17.4 cm2 Time Measurements MV dec time: 0.33 sec Doppler Measurements & Calculations MV E max yasmany: 96.6 cm/sec Lat Peak E' Yasmany: 9.9 cm/sec Med Peak E' Yasmany: 5.9 cm/sec MV A max yasmany: 150.8 cm/sec E/E' lat: 9.8 E/E' med: 16.3 MV E/A: 0.64 Ao V2 max: 175.8 cm/sec LV V1 max: 121.2 cm/sec PA V2 max: 94.2 cm/sec Ao max P.4 mmHg LV V1 max P.9 mmHg TR max yasmany: 279.8 cm/sec TR max P.3 mmHg Interpretation Summary Mild concentric left ventricular hypertrophy. The estimated ejection fraction is 65 %. Stage 1 diastolic dysfunction. The left atrium is moderately enlarged. Mild (1+) tricuspid valve insufficiency. Right ventricular systolic pressure estimated to be 37 mmHg. Mild pulmonary hypertension. There is no comparison study available. Ordering Physician: Chey Salinas Referring Physician: Yue Fitzgerald Performed By: Tiffanie Metz RDCS, RVT
--- NOTE | 2019-01-16 08:21 | PCM.PSN.6M ---
PSN 6 Minute Walk Test - 6 Minute Walk Test 6 Minute Walk Test: 6 Minute Walk Test PSN:6-Minute Walk Test Start: 01/15/19 09:50 Freq: Status: Active Protocol: [id number].[id number] Document 01/15/19 09:00 EW (Rec: 01/15/19 09:54 EW [id number]) 6 Minute Walk Test Date Performed 01/15/19 Time Performed 09:00 Height 5 ft 5 in Weight: 218 lb Weight in Pounds [address]: Chey Salinas Assistive device used: None Pre-test Oxygen Delivery Method Room Air Pulse Ox (%) 94 Pulse Rate (60-100 beats/min) 64 Dyspnea Kyle Scale (0-10) 1 Exertion Kyle Scale (6-20) 7 1st minute Oxygen Delivery Method Room Air Pulse Ox (%) 94 Pulse Rate (60-100 beats/min) 82 2nd minute Oxygen Delivery Method Room Air Pulse Ox (%) 94 Pulse Rate (60-100 beats/min) 85 3rd minute Oxygen Delivery Method Room Air Pulse Ox (%) 92 Pulse Rate (60-100 beats/min) 84 4th minute Oxygen Delivery Method Room Air Pulse Ox (%) 93 Pulse Rate (60-100 beats/min) 86 5th minute Oxygen Delivery Method Room Air Pulse Ox (%) 92 Pulse Rate (60-100 beats/min) 90 6th minute Oxygen Delivery Method Room Air Pulse Ox (%) 95 Pulse Rate (60-100 beats/min) 80 Post-test Oxygen Delivery Method Room Air Pulse Ox (%) 95 Pulse Rate (60-100 beats/min) 73 Dyspnea Kyle Scale (0-10) 3 Exertion Kyle Scale (6-20) 13 Full Laps Walked 20 Partial Lap, Number of Tiles Walked 29 Total Distance Walked (ft) 1209 - Interpretation Interpretation: The patient ambulated 1209 feet over the course of 6 minutes beginning on room air without assistive devices or breaks. Pretesting oxygen saturation was noted to be 94% on room air. With ambulation, the kitty oxygen saturation was 92%. There was no significant exertional oxygen desaturation. - Recommendations Recommendations: There is no indication for the use of supplemental oxygen at this time.
== END ==
PROVIDERS: Family Provider Family Medicine; PCP Family Medicine; Referring Provider Nurse Practitioner Acute Care; Visit Provider Nurse Practitioner Acute Care
DX: R06.02 Shortness of breath (principal); R06.00 Dyspnea, unspecified
CPT/HCPCS: 93306; 94618